=== PATIENT | male | born 1955 | race Caucasian/White ===

== ENCOUNTER 2018-06-09 12:54 | Emergency (ER) | payer BC ==
[~2018-06-09] VITALS: Ht 190.5 cm; Wt 102.1 kg
[2018-06-09 12:56] VITALS: Ht 190.5 cm; Wt 102.1 kg
[2018-06-09 13:24] LABS: BASOPHIL % 0.8 % (0-2); PLATELET COUNT 201 x10^3mcL (130-400); RED CELL DISTRIBUTION WIDTH 13.1 % (11.5-14.5)
[2018-06-09 13:28] VITALS: BP 174/103
[2018-06-09 13:38] LABS: CREATININE SERUM 1.3 mg/dL (0.7-1.3); POTASSIUM SERUM 3.4 mmol/L (3.5-5.1)
[2018-06-09 13:43] LABS: ALBUMIN 4.6 g/dL (3.4-5.0); BILIRUBIN TOTAL 1.19 mg/dL (0.20-1.00)
[2018-06-09 13:44] LABS: CHOLESTEROL/HDL RATIO 7.5; TOTAL PROTEIN, SERUM 8.4 g/dL (6.4-8.2)
[2018-06-09 13:46] LABS: FREE T4 0.91 ng/dL (0.76-1.46); FREE THYROXINE INDEX 3.1 ug/dL (1.4-4.5); T4(THYROXINE) 8.7 ug/dL (4.7-13.3)
[2018-06-09 13:52] LABS: T3 TOTAL 1.25 ng/mL
== END 2018-06-09 13:33 | disposition short-term general hospital (02) ==
LOC: ED 12:54
PROVIDERS: Specialist
DX: I21.3 ST elevation (STEMI) myocardial infarction of unspecified site (principal); M54.6 Pain in thoracic spine
CPT/HCPCS: 83880; 84439; J2270; J2405; J7030; Q0092